=== PATIENT | female | born 1960 | race Caucasian/White ===

== ENCOUNTER 2021-06-21 16:18 | Emergency (ER) | payer OTHER ==
[~2021-06-21] VITALS: Ht 157.5 cm; Wt 87.3 kg
[2021-06-21 16:41] VITALS: BP_DIAS 110
[2021-06-21] MEDS ORDERED: amLODIPine 5mg tablet PO ONE (21:40)
[2021-06-21] MEDS ORDERED: AMLO5TAB4 PO (21:44)
[2021-06-21 22:10] VITALS: BP_SYST 233
== END 2021-06-21 22:12 | disposition home or self-care (01) ==
LOC: ER 16:18
DX: R03.0 Elevated blood-pressure reading, without diagnosis of hypertension (principal); R51.9 Headache, unspecified; M54.2 Cervicalgia; Z79.899 Other long term (current) drug therapy; V87.7XXA Person injured in collision between other specified motor vehicles (traffic), initial encounter; Y93.89 Activity, other specified; Y92.89 Other specified places as the place of occurrence of the external cause; Y99.8 Other external cause status
CPT/HCPCS: 70450; 72125; 93005; 99284